=== PATIENT | female | born 2000 ===

== ENCOUNTER 2022-01-15 02:25 | Outpatient (CLI) | payer BC, SELFPAY | END 2022-01-15 02:26 | disposition home or self-care (01) | PROVIDERS: Visit Provider Family Medicine | DX: R11.2 Nausea with vomiting, unspecified (principal); F12.10 Cannabis abuse, uncomplicated; F10.129 Alcohol abuse with intoxication, unspecified | CPT/HCPCS: A0425; A0427 ==

== ENCOUNTER 2022-01-15 03:14 | Emergency (ER) | payer BC, SELFPAY ==
[2022-01-15 03:16] VITALS: BP 146/94; PULSE 107; RESP 20; TEMP 36.4; O2SAT 96; BMI 27.5
[2022-01-15] MEDS: 0.9 % SODIUM CHLORIDE 1000 ml 1,000 ML IV (03:30)
--- NOTE | 2022-01-15 03:30 | ED_ITS ---
HPI - Nausea/Vomiting/Diarrhea General Chief complaint: Nausea/Vomiting <Yoshi Rothman MD - Last Filed: 01/15/22 07:55> Stated complaint: Nausea <Yoshi Rothman MD - Last Filed: 01/15/22 07:55> Time Seen by Provider: 01/15/22 03:21 <Yoshi Rothman MD - Last Filed: 01/15/22 07:55> History of Present Illness HPI Narrative: 21-year-old woman brought by EMS to the emergency department after not feeling well upon taking reportedly THC edibles and having a beer with friends she says. This feels like she can not breathe feels heavy and like a ton of bricks are on her. Not specifically in pain. Has vomited received 4 mg of Zofran from EMS. <Yoshi Rothman MD - Last Filed: 01/15/22 07:55> Related Data Home medications: Home Medications Medication Instructions Recorded Confirmed No Known Home Medications 01/15/22 01/15/22 <Yoshi Rothman MD - Last Filed: 01/15/22 07:55> Allergies/Adverse reactions: Allergies Allergy/AdvReac Type Severity Reaction Status Date / Time No Known Drug Allergies Allergy Verified 01/15/22 03:21 <Yoshi Rothman MD - Last Filed: 01/15/22 07:55> Review of Systems Status of ROS: Reports: 6 or more systems reviewed and unremarkable except as noted in History and below <Yoshi Rothman MD - Last Filed: 01/15/22 07:55> [facility] Medical History: Medical History (Updated 01/15/22 @ 07:54 by Yoshi Rothman MD) No significant past medical history <Yoshi Rothman MD - Last Filed: 01/15/22 07:55> Surgical History: Surgical History (Updated 01/15/22 @ 03:24 by Sanchez Mack RN) No significant past surgical history <Yoshi Rothman MD - Last Filed: 01/15/22 07:55> Social History: Social History Smoking Status: Current every day smoker What tobacco products do you use: cigarettes Do you use any of these nicotine containing products: None Second hand tobacco smoke exposure: Yes How often do you have a drink containing alcohol: 2-3 times a week How many standard drinks containing alcohol do you have on a typical day: 1 or 2 How often do you have six or more drinks on one occasion: Never AUDIT-C Alcohol total score: 3 Non-prescribed substance use: marijuana (any form) <Yoshi Rothman MD - Last Filed: 01/15/22 07:55> Exam Narrative: Exam Narrative: On disheveled. Smeared mascara. Barely audible speech but clear. Head is atraumatic. Cranial nerves 2-12 look to be intact. Eyes seem to be in the circular move ment. Able to focus though in extraocular movements intact. Some nystagmus initially seemed to be rotational though with focus is more horizontal. Oropharynx is moist She is breathing easily albeit a little shallow. And lungs are clear Cardiovascular is elevated rate regular rhythm. Abdomen is overweight soft and nontender. Extremities demonstrates the heaviness of the weights upon them but able to move them. She is well perfused peripherally. <Yoshi Rothman MD - Last Filed: 01/15/22 07:55> Const: Vital Signs, click to edit/add: Vital Signs - 24 hr 01/15/22 03:16 01/15/22 03:38 01/15/22 06:11 Temperature 97.6 F Pulse Rate 98 71 Pulse Rate [Right Pulse Oximeter] 107 H Respiratory Rate 20 Blood Pressure 122/74 Blood Pressure [Ri ght Upper Arm] 146/94 H Pulse Oximetry 96 96 96 Oxygen Delivery Me thod Room Air 01/15/22 06:11 01/15/22 07:00 01/15/22 07:49 Temperature Pulse Rate 72 109 H Pulse Rate [Right Pulse Oximeter] 71 Respiratory Rate 16 Blood Pressure 133/76 Blood Pressure [Ri ght Upper Arm] 125/71 Pulse Oximetry 96 97 97 Oxygen Delivery Me thod Room Air <Yoshi Rothman MD - Last Filed: 01/15/22 07:55> Vital Signs, click to edit/add: Vital Signs - 24 hr 01/15/22 03:16 01/15/22 03:38 01/15/22 06:11 Temperature 97.6 F Pulse Rate 98 71 Pulse Rate [Right Pulse Oximeter] 107 H Respiratory Rate 20 Blood Pressure 122/74 Blood Pressure [Ri ght Upper Arm] 146/94 H Pulse Oximetry 96 96 96 Oxygen Delivery Me thod Room Air 01/15/22 06:11 01/15/22 07:00 01/15/22 07:49 Temperature Pulse Rate 72 109 H Pulse Rate [Right Pulse Oximeter] 71 Respiratory Rate 16 Blood Pressure 133/76 Blood Pressure [Ri ght Upper Arm] 125/71 Pulse Oximetry 96 97 97 Oxygen Delivery Me thod Room Air <Gustavo Unger MD - Last Filed: 01/15/22 08:27> Documenting provider has reviewed patient's vital signs: yes <Yoshi Rothman MD - Last Filed: 01/15/22 07:55> Course Course Hospital Course: IV has already been placed. Will add to that fluids and monitoring. Urine tox screen. <Yoshi Rothman MD - Last Filed: 01/15/22 07:55> Reevaluation(s) Reevaluation #1: Slept overnight. Alerts slowly this morning. Feeling little dizzy. ?I thought it was just weed? as I am proposing completing the U tox order. Given water. <Yoshi Rothman MD - Last Filed: 01/15/22 07:55> Time: 07:17 <Yoshi Rothman MD - Last Filed: 01/15/22 07:55> Vital Signs Vital signs: Initial Vital Signs Temperature 97.6 F 01/15/22 03:16 Temperature Source Temporal Artery Scan 01/15/22 03:16 Pulse Rate 107 H 01/15/22 03:16 Respiratory Rate 20 01/15/22 03:16 Blood Pressure 146/94 H 01/15/22 03:16 Blood Pressure Mean 111 01/15/22 03:16 Blood Pressure Position Supine 01/15/22 03:16 Pulse Oximetry 96 01/15/22 03:16 Oxygen Delivery Method 01/15/22 03:16 Vital Signs Temperature 97.6 F 01/15/22 03:16 Pulse Rate 107 H 01/15/22 03:16 Respiratory Rate 20 01/15/22 03:16 Blood Pressure 146/94 H 01/15/22 03:16 Pulse Oximetry 96 01/15/22 03:16 Oxygen Delivery Method 01/15/22 03:16 Temperature 97.6 F 01/15/22 03:16 Pulse Rate 109 H 01/15/22 07:49 Respiratory Rate 16 01/15/22 06:11 Blood Pressure 133/76 01/15/22 07:49 Pulse Oximetry 97 01/15/22 07:49 Oxygen Delivery Method 01/15/22 06:11 <Yoshi Rothman MD - Last Filed: 01/15/22 07:55> Initial Vital Signs Temperature 97.6 F 01/15/22 03:16 Temperature Source Temporal Artery Scan 01/15/22 03:16 Pulse Rate 107 H 01/15/22 03:16 Respiratory Rate 20 01/15/22 03:16 Blood Pressure 146/94 H 01/15/22 03:16 Blood Pressure Mean 111 01/15/22 03:16 Blood Pressure Position Supine 01/15/22 03:16 Pulse Oximetry 96 01/15/22 03:16 Oxygen Delivery Method 01/15/22 03:16 Vital Signs Temperature 97.6 F 01/15/22 03:16 Pulse Rate 107 H 01/15/22 03:16 Respiratory Rate 20 01/15/22 03:16 Blood Pressure 146/94 H 01/15/22 03:16 Pulse Oximetry 96 01/15/22 03:16 Oxygen Delivery Method 01/15/22 03:16 Temperature 97.6 F 01/15/22 03:16 Pulse Rate 109 H 01/15/22 07:49 Respiratory Rate 16 01/15/22 06:11 Blood Pressure 133/76 01/15/22 07:49 Pulse Oximetry 97 01/15/22 07:49 Oxygen Delivery Method 01/15/22 06:11 <Gustavo Unger MD - Last Filed: 01/15/22 08:27> MDM - Nausea/Vomiting/Diarrhea MDM Narrative Medical decision making narrative: Pending urine tox. Since seems improved after time and hydration and rest. <Yoshi Rothman MD - Last Filed: 01/15/22 07:55> Pending urine tox. Since seems improved after time and hydration and rest. Urine tox screen returns positive for marijuana and negative for anything else. The patient received Tylenol 1000 mg for symptomatic relief. She is okay to return home. <Gustavo Unger MD - Last Filed: 01/15/22 08:27> Lab Data Labs: Lab Results 01/15/22 Range/Units 07:45 Urine Opiates Screen Negative (Negative) Ur Oxycodone Screen Negative (Negative) Urine Methadone Screen Negative (Negative) Ur Propoxyphene Screen Negative (Negative) Ur Barbiturates Screen Negative (Negative) U Tricyclic Antidepress Negative (Negative) Ur Phencyclidine Scrn Negative (Negative) Ur Amphetamines Screen Negative (Negative) U Methamphetamines Scrn Negative (Negative) U Benzodiazepines Scrn Negative (Negative) Urine Cocaine Screen Negative (Negative) U Marijuana (THC) Screen POSITIVE A* (Negative) Ur Drug Screen Comment See Note <Yoshi Rothman MD - Last Filed: 01/15/22 07:55> Lab Results 01/15/22 Range/Units 07:45 Urine Opiates Screen Negative (Negative) Ur Oxycodone Screen Negative (Negative) Urine Methadone Screen Negative (Negative) Ur Propoxyphene Screen Negative (Negative) Ur Barbiturates Screen Negative (Negative) U Tricyclic Antidepress Negative (Negative) Ur Phencyclidine Scrn Negative (Negative) Ur Amphetamines Screen Negative (Negative) U Methamphetamines Scrn Negative (Negative) U Benzodiazepines Scrn Negative (Negative) Urine Cocaine Screen Negative (Negative) U Marijuana (THC) Screen POSITIVE A* (Negative) Ur Drug Screen Comment See Note <Gustavo Unger MD - Last Filed: 01/15/22 08:27> Discharge Plan Discharge Clinical Impression: Encounter for observation for suspected toxic effect from ingested substance <Yoshi Rothman MD - Last Filed: 01/15/22 07:55> Patient Disposition: Home w/ Parent or Adult <Yoshi Rothman MD - Last Filed: 01/15/22 07:55> Condition: Improved <Yoshi Rothman MD - Last Filed: 01/15/22 07:55> Additional Instructions: Do take care out there. Hydrate. Rest. <Yoshi Rothman MD - Last Filed: 01/15/22 07:55> Prescriptions: No Action No Known Home Medications <Yoshi Rothman MD - Last Filed: 01/15/22 07:55> Stand Alone Forms: MyHealth Info Instructions <Yoshi Rothman MD - Last Filed: 01/15/22 07:55>
[2022-01-15 03:38] VITALS: BP 122/74; PULSE 98; O2SAT 96
[2022-01-15 06:11] VITALS: BP 125/71; PULSE 71; RESP 16; O2SAT 96
[2022-01-15 07:00] VITALS: PULSE 72; O2SAT 97
--- NOTE | 2022-01-15 07:05 | ED.NURSE ---
Report from MIO Bradford. I will now assume care of patient. Patient asleep on cot, VSS. SpO2 98% RA, HR 92, RR16. Plan for collection of UA and re-evaluation by .
--- NOTE | 2022-01-15 07:45 | ED.NURSE ---
Dr. Rothman previously in with patient, patient awake and alert at this time. Believes she is able to provide urine sample. Patient to restroom ambulatory, reporting dizziness but able to ambulate independently. UA collected for utox testing. Patient back resting on cot, VSS.
[2022-01-15 07:49] VITALS: BP 133/76; PULSE 109; O2SAT 97
[2022-01-15 08:02] LABS: Amphetamine Screen Urine Negative (Negative); Barbiturate Screen Urine Negative (Negative); Benzodiazepines Screen Urine Negative (Negative); Cannabinoid Screen Urine POSITIVE (Negative); Cocaine Screen Urine Negative (Negative); Methadone Screen Urine Negative (Negative); Methamphetamines Screen Urine Negative (Negative); Opiate Screen Urine Negative (Negative); Oxycodone Screen Urine Negative (Negative); Phencyclidine Screen Urine Negative (Negative); Tricyclic Antidepressant Urine Negative (Negative)
[2022-01-15] MEDS: ACETAMINOPHEN 500 MG TABLET 1000 MG PO (08:28)
--- NOTE | 2022-01-15 08:48 | ED.NURSE ---
Patient leaves ED ambulatory, coming from [place] to provide ride home.
== END 2022-01-15 08:47 | disposition home or self-care (01) ==
LOC: ED 08:19
PROVIDERS: Emergency Provider Family Medicine
DX: R11.2 Nausea with vomiting, unspecified (principal); T40.715A Adverse effect of cannabis, initial encounter
CPT/HCPCS: 80306; 96360; 99284; A9270; J7030

== ENCOUNTER 2022-03-10 16:44 | Outpatient (CLI) | payer BC, SELFPAY | END 2022-03-10 16:45 | disposition home or self-care (01) | LOC: AMB 04-23 18:59 | PROVIDERS: Visit Provider Family Medicine | DX: R53.1 Weakness (principal) | CPT/HCPCS: A0998 ==

== ENCOUNTER 2022-06-16 21:35 | Outpatient (CLI) | payer SELFPAY | END 2022-06-16 21:36 | disposition home or self-care (01) | PROVIDERS: Visit Provider Family Medicine | DX: R06.09 Other forms of dyspnea (principal) ==

== ENCOUNTER 2022-08-29 03:26 | Emergency (ER) | payer BC, SELFPAY ==
[2022-08-29 03:41] VITALS: BP 121/74; PULSE 110; RESP 20; TEMP 36.7; O2SAT 99; BMI 28.3
--- NOTE | 2022-08-29 04:01 | ED_ITS ---
HPI - General Adult General Chief complaint: Sore Throat Stated complaint: Fever, sore throat Time Seen by Provider: 08/29/22 03:27 Source: patient Mode of arrival: ambulatory Limitations: no limitations History of Present Illness HPI narrative: Patient is a 22-year-old generally healthy young woman who reports 2 days of sore throat, headache, fever. She was exposed to someone with similar symptoms about a week and half ago, she says that they said that their symptoms were not caused by strep throat, no specific diagnosis. She has not run a COVID test. She says she has tried ibuprofen and Tylenol but still has a sore throat. No vomiting, rash, significant cough or shortness of breath. Denies significant health problems, does smoke. No history of mono. Related Data Home Medications Medication Instructions Recorded Confirmed No Known Home Medications 01/15/22 08/29/22 Allergies Allergy/AdvReac Type Severity Reaction Status Date / Time No Known Drug Allergies Allergy Verified 08/29/22 03:44 Review of Systems Status of ROS: Reports: 6 or more systems reviewed and unremarkable except as noted in History and below [facility] Medical History (Updated 08/29/22 @ 05:18 by Pari Dean MD) No significant past medical history Surgical History No significant past surgical history Social History Smoking Status: Current every day smoker What tobacco products do you use: cig arettes Do you use any of these nicotine containing products: None Second hand tobacco smoke exposure: Yes How often do you have a drink containing alcohol: 2-3 times a week How many standard drinks containing alcohol do you have on a typical day: 1 or 2 How often do you have six or more drinks on one occasion: Never AUDIT-C Alcohol total score: 3 Non-prescribed substance use: marijuana (any form) Exam Narrative: Exam Narrative: Vital signs as noted above. In general, an alert, well-appearing patient. Voice is normal. Head: Normocephalic, atraumatic. Eyes: Pupils are equal reactive. Extraocular movements are full. Conjunctivae are normal. ENT: Mucous membranes are moist. Throat is erythematous, no exudate, edema. Neck: Supple , no meningismus. No significant adenopathy. Heart: Regular rate and rhythm. No murmur or rub. Lungs: Clear bilaterally. No increased work of breathing, crackles or wheezes. Extremities: Well perfused. No edema. No calf tenderness. Pulses intact. Neurologic: Patient is alert and oriented to person and place. Speech is fluent. Face is symmetric. Moves all extremities equally. Affect: Normal. Skin: Warm and dry. Well perfused. Const: Vital Signs, click to edit/add: Vital Signs - 24 hr 08/29/22 03:41 08/29/22 04:29 08/29/22 05:14 Temperature 98.0 F 98.0 F 98.0 F Pulse Rate [Right Pulse Oximeter] 110 H 99 Respiratory Rate 20 20 Blood Pressure [Ri ght Upper Arm] 121/74 118/70 Pulse Oximetry 99 99 Oxygen Delivery Me thod Room Air Room Air 08/29/22 05:24 Temperature 98.0 F Pulse Rate [Right Pulse Oximeter] 99 Respiratory Rate 20 Blood Pressure [Ri ght Upper Arm] 118/70 Pulse Oximetry Oxygen Delivery Me thod Documenting provider has reviewed patient's vital signs: yes Course Course Hospital Course: Ordered a strep screen as well as COVID/flu/influenza. These last 3 were negative but strep was positive. She had some ibuprofen here, recommend a combination of ibuprofen plus Tylenol at home for more severe pain. Amoxicillin ordered for a 10 day course. Anticipate improvement over the next 1-2 days. Return for worsening. Vital Signs Vital signs: Initial Vital Signs Respiratory Effort Normal, Spontaneous, Non-Labored 08/29/22 03:40 Respiratory Depth Normal 08/29/22 03:40 Respiratory Pattern Normal 08/29/22 03:40 Vital Signs Temperature 98.0 F 08/29/22 03:41 Pulse Rate 110 H 08/29/22 03:41 Respiratory Rate 20 08/29/22 03:41 Blood Pressure 121/74 08/29/22 03:41 Pulse Oximetry 99 08/29/22 03:41 Oxygen Delivery Method Room Air 08/29/22 03:41 Temperature 98.0 F 08/29/22 05:24 Pulse Rate 99 08/29/22 05:24 Respiratory Rate 20 08/29/22 05:24 Blood Pressure 118/70 08/29/22 05:24 Pulse Oximetry 99 08/29/22 05:14 Oxygen Delivery Method Room Air 08/29/22 05:14 Medical Decision Making Lab Data Labs: Lab Results 08/29/22 Range/Units 04:10 SARS-CoV-2 (PCR) Negative SARS-CoV-2 (Negative) Influenza Type A (PCR) Negative PCR FLU A (Negative) Influenza Type B (PCR) Negative PCR FLU B (Negative) RSV (PCR) Negative PCR RSV (Negative) Group A Strep DNA DETECTED A (Not Detectd) Discharge Plan Discharge Clinical Impression: Strep throat Patient Disposition: Home, Self-Care Condition: Stable Instructions: Strep Throat (DC) Additional Instructions: Antibiotic as prescribed. Ibuprofen 400 mg plus or minus Tylenol 1000 mg 3 times daily with food. Anticipate improvement over the next 1-2 days. For worsening, severe sore throat inability to swallow secretions, return to the emergency department. Prescriptions: No Action No Known Home Medications Follow Up/Referrals: Provider,Not a Local [Primary Care Provider] - Stand Alone Forms: MyHealth Info Instructions
[2022-08-29 04:29] VITALS: TEMP 36.7
[2022-08-29] MEDS: IBUPROFEN 200 MG TABLET 400 MG PO (04:29)
[2022-08-29 04:51] LABS: PCR FLU A Negative PCR FLU A (Negative); PCR FLU B Negative PCR FLU B (Negative); PCR RSV Negative PCR RSV (Negative)
[2022-08-29 05:14] VITALS: BP 118/70; PULSE 99; RESP 20; TEMP 36.7; O2SAT 99
[2022-08-29 05:15] LABS: SARS PCR* Negative SARS-CoV-2 (Negative); Strep A DNA Probe* DETECTED (Not Detectd)
[2022-08-29 05:24] VITALS: BP 118/70; PULSE 99; RESP 20; TEMP 36.7
== END 2022-08-29 05:24 | disposition home or self-care (01) ==
LOC: ED 05:21
PROVIDERS: Emergency Provider Emergency Medicine
DX: J02.0 Streptococcal pharyngitis (principal)
CPT/HCPCS: 87631; 87651; 99283; A9270

== ENCOUNTER 2022-12-09 19:51 | Emergency (ER) | payer BC, SELFPAY ==
[2022-12-09 20:07] VITALS: BP 131/83; PULSE 97; RESP 18; TEMP 36.1; O2SAT 98; BMI 26.6
--- NOTE | 2022-12-09 20:17 | ED_ITS ---
HPI - General Adult General Time Seen by Provider: 20:17 Date Seen: 12/09/22 Chief complaint: Urogenital Problems, Female Stated complaint: Suspected UTI Time Seen by Provider: 12/09/22 20:14 Source: patient Mode of arrival: ambulatory Limitations: no limitations History of Present Illness HPI narrative: Patient is 18 for a few with no pertinent medical problems presents to emergency department for pressure with urination, polyuria, hematuria, dizziness. Patient states for the past few days she has been having intermittent dizziness and lightheadedness. She says low symptoms seem to be improving at this moment. She knows they 15:00 o'clock she has been urinating very frequently and no she does urinate she notes that large Bhavana blood in her urine. She also thinks she passed some clots. States she finished her menstrual period 4 days ago and so she does not believe she is currently menstruating. Patient states she also had some low back pain last night that is getting better today also. No history of kidney stones. States that goes to the back pain seems sharper but today it has been mostly dull and is the mid low back. Denies fevers, chills, chest pain, shortness of breath, abdominal pain, diarrhea, constipation, headache, vision changes, weakness. Related Data Previous Rx's Medication Instructions Recorded doxycycline hyclate 100 mg capsule 100 mg PO BID #14 caps 12/09/22 nitrofurantoin 100 mg PO Q12H #10 caps 12/09/22 monohydrate/macrocrystals 100 mg capsule (Macrobid) Allergies Allergy/AdvReac Type Severity Reaction Status Date / Time No Known Drug Allergies Allergy Verified 08/29/22 03:44 Review of Systems Status of ROS: Reports: 10 or more systems reviewed and unremarkable except as noted in History and below [facility] Medical History (Updated 12/09/22 @ 21:16 by Sal Ferris DO) No significant past medical history Surgical History No significant past surgical history Social History Smoking Status: Current every day smoker What tobacco products do you use: cigarettes Do you use any of these nicotine containing products: None Second hand tobacco smoke exposure: Yes How often do you have a drink containing alcohol: 2-3 times a week How many standard drinks containing alcohol do you have on a typical day: 1 or 2 How often do you have six or more drinks on one occasion: Never AUDIT-C Alcohol total score: 3 Non-prescribed substance use: marijuana (any form) Exam Narrative: Exam Narrative: Const: Well-nourished, Well-developed, in mild distress Eyes: PERRL, no conjunctival injection, and symmetrical lids ENMT: Atraumatic external nose and ears. Moist mucous membranes. Neck: Symmetric, trachea midline, No thyromegaly. CVS: RRR, No murmurs or gallops. Peripheral pulses 2+ and equal in all extremities RESP: Unlabored respiratory effort. Clear to auscultation bilaterally. GI: Nontender/Nondistended, No rebound or guarding. MSK:Extremities w/o deformity, Normal Active ROM Skin: Warm, Dry. No rashes or lesions. Neuro: Normal Muscle tone, No focal neurological deficits. Psych: Awake, Alert, & Oriented x3. Appropriate mood and affect. Const: Vital Signs, click to edit/add: Vital Signs - 24 hr 12/09/22 20:07 Temperature 97 F L Pulse Rate [Pulse Oximeter] 97 Respiratory Rate 18 Blood Pressure [Ri ght Upper Arm] 131/83 Pulse Oximetry 98 Oxygen Delivery Me thod Room Air Course Vital Signs Vital signs: Initial Vital Signs Temperature 97 F L 12/09/22 20:07 Temperature Source Temporal Artery Scan 12/09/22 20:07 Pulse Rate 97 12/09/22 20:07 Respiratory Rate 18 12/09/22 20:07 Blood Pressure 131/83 12/09/22 20:07 Blood Pressure Mean 99 12/09/22 20:07 Blood Pressure Position Sitting 12/09/22 20:07 Pulse Oximetry 98 12/09/22 20:07 Oxygen Delivery Method Room Air 12/09/22 20:07 Vital Signs Temperature 97 F L 12/09/22 20:07 Pulse Rate 97 12/09/22 20:07 Respiratory Rate 18 12/09/22 20:07 Blood Pressure 131/83 12/09/22 20:07 Pulse Oximetry 98 12/09/22 20:07 Oxygen Delivery Method Room Air 12/09/22 20:07 Temperature 97 F L 12/09/22 20:07 Pulse Rate 97 12/09/22 20:07 Respiratory Rate 18 12/09/22 20:07 Blood Pressure 131/83 12/09/22 20:07 Pulse Oximetry 98 12/09/22 20:07 Oxygen Delivery Method Room Air 12/09/22 20:07 Medical Decision Making MDM Narrative Medical decision making narrative: Patient is a 22-year-old female presented emergency department for pain with urination and frequency. She has also had hematuria. She has had some dizziness but the dizziness has improved today. She has had some low back pain more of the mid back. She describes it now as a dull sensation. Has not had any fevers. With bloody urine there was concern for nephrolithiasis. She has no history of this but her pain does not appear consistent with nephrolithiasis. Of the 7 not believe it is necessary to CT scan here to check. With early symptoms that we do CBC, BMP, urinalysis. Also ordered an EKG. EKG shows no concerning abnormalities. Patient's urinalysis shows large amount of blood in signs of a UTI. We will treat this urinary tract infection. Not sure why she is having blood in the urine but she did recently finished her menstrual period. While I was giving her these results she did mention to me also that she is concerned she has STD. She states she believes her is cheating. To that she would like to be tested. These tests were added on. She will be called with the results. I did give her a shot of Rocephin IM to treat for gonorrhea. Doxycycline was sent her pharmacy and should be called back with results if it is positive. I will start her on Keflex for her UTI. Lab Data Labs: Lab Results 12/09/22 12/09/22 12/09/22 Range/Units 20:13 20:35 20:43 WBC 10.30 (4.50-11.00) K/uL RBC 4.74 (4.00-5.20) m/uL Hgb 12.6 (12.0-16.0) gm/dL Hct 39.6 (33.0-51.0) % MCV 84 (80-100) fL MCH 27 (26-34) pg MCHC 32 (32-36) gm/dL RDW Coeff of Pedro 15.0 (11.5-15.5) % Plt Count 349 (140-440) K/uL Neut % (Auto) 72.8 H (42.0-72.0) % Lymph % (Auto) 19.8 L (20-44) % Slope % (Auto) 5.4 (0.0-11.0) % Eos % (Auto) 1.4 (0.0-7.0) % Baso % (Auto) 0.5 (0.0-3.0) % Neut # (Auto) 7.50 H (1.7-7.0) K/uL Lymph # (Auto) 2.00 (0.90-2.90) K/uL Slope # (Auto) 0.60 (0.00-0.90) K/UL Eos # (Auto) 0.14 (0.00-0.50) K/uL Baso # (Auto) 0.05 (0.00-0.30) K/uL Abs Immat Gran (auto) 0.01 (0.00-0.30) K/uL Imm/Tot Granulo (auto) 0.1 % Sodium 142 (135-149) mmol/L Potassium 3.5 L (3.6-5.1) mmol/L Chloride 106 (96-114) mmol/L Carbon Dioxide 25 (20-32) mmol/L BUN 11 (5-24) mg/dL Creatinine 0.7 (0.5-1.5) mg/dL Estimated Creat Clear 102.51 Estimated GFR 124 ml/min Glucose 97 (60-115) mg/dL Calcium 9.3 (8.4-10.6) mg/dL HCG, Qual Negative (Negative) Urine Color Red A (Yellow) Urine Appearance Slightly Cloudy A (Clear) Urine pH 7.0 (5.0-8.5) Ur Specific Reynolds >= 1.030 (1.000-1.030) Urine Protein 3+ A (Negative) Urine Glucose (UA) Negative (Negative) Urine Ketones Trace A (Negative) Urine Blood 3+ A (Negative) Urine Nitrite Positive A (Negative) Urine Bilirubin 1+ A (Negative) Urine Urobilinogen 1.0 (0.2-1.0) Ur Leukocyte Esterase 1+ A (Negative) Urine RBC >100 A (0-2) Urine WBC 25-50 A (0-5) Ur Squamous Epith Cells Few (None-Few) Urine Bacteria Few A (None) Lab Acknowledgement Test Added 12/09/22 Range/Units 20:59 WBC (4.50-11.00) K/uL RBC (4.00-5.20) m/uL Hgb (12.0-16.0) gm/dL Hct (33.0-51.0) % MCV (80-100) fL MCH (26-34) pg MCHC (32-36) gm/dL RDW Coeff of Pedro (11.5-15.5) % Plt Count (140-440) K/uL Neut % (Auto) (42.0-72.0) % Lymph % (Auto) (20-44) % Slope % (Auto) (0.0-11.0) % Eos % (Auto) (0.0-7.0) % Baso % (Auto) (0.0-3.0) % Neut # (Auto) (1.7-7.0) K/uL Lymph # (Auto) (0.90-2.90) K/uL Slope # (Auto) (0.00-0.90) K/UL Eos # (Auto) (0.00-0.50) K/uL Baso # (Auto) (0.00-0.30) K/uL Abs Immat Gran (auto) (0.00-0.30) K/uL Imm/Tot Granulo (auto) % Sodium (135-149) mmol/L Potassium (3.6-5.1) mmol/L Chloride (96-114) mmol/L Carbon Dioxide (20-32) mmol/L BUN (5-24) mg/dL Creatinine (0.5-1.5) mg/dL Estimated Creat Clear Estimated GFR ml/min Glucose (60-115) mg/dL Calcium (8.4-10.6) mg/dL HCG, Qual (Negative) Urine Color (Yellow) Urine Appearance (Clear) Urine pH (5.0-8.5) Ur Specific Reynolds (1.000-1.030) Urine Protein (Negative) Urine Glucose (UA) (Negative) Urine Ketones (Negative) Urine Blood (Negative) Urine Nitrite (Negative) Urine Bilirubin (Negative) Urine Urobilinogen (0.2-1.0) Ur Leukocyte Esterase (Negative) Urine RBC (0-2) Urine WBC (0-5) Ur Squamous Epith Cells (None-Few) Urine Bacteria (None) Lab Acknowledgement Test Added ECG Data Attestation: I personally reviewed and interpreted this ECG as follows: (Normal sinus rhythm with a rate of 78 beats per minute, normal intervals, normal axis, no ST or T-wave abnormalities.) Prior ECG tracings: not available for review Discharge Plan Discharge Clinical Impression: Urinary tract infection Patient Disposition: Home, Self-Care Condition: Stable Instructions: Urinary Tract Infection in Women (DC) Additional Instructions: Follow-up with the primary care provider. You will be given a call if the results are positive for your STD gonorrhea and chlamydia tests. If they are positive garbage pick up worker your doxycycline prescription. Return for new worsening symptoms Prescriptions: New doxycycline hyclate 100 mg capsule 100 mg PO BID Qty: 14 0RF nitrofurantoin monohyd/m-cryst [Macrobid] 100 mg capsule 100 mg PO Q12H Qty: 10 0RF Rx Instructions: must administer with a meal/food Follow Up/Referrals: Provider,Not a Local [Primary Care Provider] - Stand Alone Forms: [facility] Info Instructions
[2022-12-09 20:25] LABS: Bilirubin Urine 1+ (Negative); Blood Urine 3+ (Negative); Color Urine Red (Yellow); Glucose Urine Negative (Negative); Ketones Urine Trace (Negative); Leukocyte Esterase Urine 1+ (Negative); Nitrite Urine Positive (Negative); Protein Urine 3+ (Negative); Specific Gravity Urine >= 1.030 (1.000-1.030)
[2022-12-09 20:37] LABS: Appearance Urine Slightly Cloudy (Clear); Bacteria Urine Few; RBC Urine >100 (0-2); Squamous Epithelial Cell Urine Few (None-Few); WBC Urine 25-50 (0-5)
[2022-12-09 20:44] LABS: Basophils Absolute Auto 0.05 K/uL (0.00-0.30); Basophils Percent Auto 0.5 % (0.0-3.0); Eosinophils Absolute Auto 0.14 K/uL (0.00-0.50); Eosinophils Percent Auto 1.4 % (0.0-7.0); Hematocrit 39.6 % (33.0-51.0); Hemoglobin* 12.6 gm/dL (12.0-16.0); Immature Granulocytes Abs Auto 0.01 K/uL (0.00-0.30); Immature Granulocytes Pct Auto 0.1 %; Lymphocytes Percent Auto 19.8 % (20-44); Mean Corpuscular HGB Conc 32 gm/dL (32-36); Mean Corpuscular Hemoglobin 27 pg (26-34); Mean Corpuscular Volume 84 fL (80-100); Monocytes Percent Auto 5.4 % (0.0-11.0); Neutrophils Percent Auto 72.8 % (42.0-72.0); Platelet Count* 349 K/uL (140-440); Red Blood Count 4.74 m/uL (4.00-5.20)
[2022-12-09 20:45] LABS: Slide Review Reflex No
[2022-12-09 20:58] LABS: Chloride* 106 mmol/L (96-114); Potassium* 3.5 mmol/L (3.6-5.1); Sodium* 142 mmol/L (135-149)
[2022-12-09 21:01] LABS: Carbon Dioxide* 25 mmol/L (20-32); Creatinine* 0.7 mg/dL (0.5-1.5); Est. Creatinine Clearance* 102.51; Estimated Glomerular Filt Rate 124 ml/min
[2022-12-09 21:02] LABS: Blood Urea Nitrogen* 11 mg/dL (5-24); Calcium* 9.3 mg/dL (8.4-10.6); Glucose* 97 mg/dL (60-115)
[2022-12-09] MEDS: LACTATED RINGERS 1000 ML 1,000 ML IV (21:02)
[2022-12-09 21:14] LABS: HCG Qualitative* Negative (Negative)
[2022-12-09] MEDS: cefTRIAXone 500 MG VIAL IM (21:14)
[2022-12-09] MEDS: LIDOCAINE 1% 5 ml (pf) 5 ML VIAL 1 ML IM (21:15)
--- NOTE | 2022-12-09 21:24 | PC.NURSE ---
patient DC stated understanding to DC instructions. will call if results positive, patient states understanding
[2022-12-09 23:01] LABS: Chlamydia DNA Amplified* NOT DETECTED (No Detected); GC DNA Amplified* NOT DETECTED (No Detected)
--- NOTE | 2022-12-10 14:26 | ED.NURSE ---
pt called asking for test results. results were negative.
== END 2022-12-09 21:23 | disposition home or self-care (01) ==
PROVIDERS: Emergency Provider Student in an Organized Health Care Education/Training Program
DX: N39.0 Urinary tract infection, site not specified (principal)
CPT/HCPCS: 36415; 80048; 81001; 84703; 85025; 87086; 87186; 87491; 87591; 93005; 99283; 99284; J0696; J7120